=== PATIENT | male | born 1985 | race Caucasian/White ===

== ENCOUNTER 2020-12-05 03:53 | Emergency (ER) | payer OTHER, SELFPAY ==
--- NOTE | ~2020-12-05 | XR_ITS ---
EXAMINATION: XR LUMBOSACRAL SPINE CLINICAL INFORMATION: Injury playing basketball COMPARISON: 04/15/2017 TECHNIQUE: Three views of the lumbosacral spine. FINDINGS: There is anatomic alignment of the lumbar vertebral bodies and posterior elements. Vertebral body heights and intervertebral disc spaces are maintained. No acute fracture is seen. Sacroiliac joints appear intact. XR/XR lumbar spine 2-3V IMPRESSION: No acute findings identified.
[2020-12-05 04:18] VITALS: BP 135/88; PULSE 81; RESP 16; TEMP 36.3; O2SAT 98; BMI 29.2
--- NOTE | 2020-12-05 06:52 | ED_ITS ---
HPI - Back Pain/Injury General Chief Complaint: Back Pain/Injury Stated Complaint: back pain Time Seen by Provider: 12/05/20 06:40 Source: patient Mode of arrival: ambulatory Limitations: no limitations History of Present Illness HPI Narrative: 35-year-old male who presents emergency department for evaluation of left lower back pain. Patient was playing basketball yesterday at around 3:00 p.m. when he jumped up landed and twisted his lower back. He states he developed immediate pain in his lower back area but he continued to play. He states that later in the day he developed increased pain in his lower back. States this morning around 1:00 a.m. the pain became 10/10. He points to his left lower lumbar back muscles when asked to localize the pain. States the pain is a constant, sharp, burning pain which is worse with movement. The pain does radiate to his left buttocks but does not radiate down his left leg. He took a friend's methocarbamol 750 mg orally with no relief his pain. He states the p ain is currently 10/10. He denied numbness, weakness, loss of bowel or bladder control. Denied fever, chills, chest pain, shortness of breath or fatigue. Related Data Previous Rx's Medication Instructions Recorded cyclobenzaprine 10 mg PO TID PRN #20 tab 12/05/20 morphine 15 mg PO Q4-6H PRN #10 tab 12/05/20 Allergies Allergy/AdvReac Type Severity Reaction Status Date / Time acetaminophen [From TYLENOL] AdvReac Unknown NAUSEA & Verified 12/05/20 04:17 VOMITING Review of Systems Review of Systems: Yes all other systems are reviewed and are negative [facility] Past Medical History [facility] Narrative: Past medical history: None, past surgical history: None. Social history: Patient smokes 1 pack of cigarettes per day x7 days. He states he drinks alcohol on the weekends. He denies drug use. Social History Social History Advance Directives: No Advance Directives Information Provided: No Physical Exam Vital Signs: Vital Signs: Last Vital Signs Temp 97.3 F 12/05/20 04:18 Pulse 81 12/05/20 04:18 Resp 16 12/05/20 04:18 BP 135/88 12/05/20 04:18 Pulse Ox 98 12/05/20 04:18 Body Mass Index 29.2 Const: Other: Patient is awake, alert, he is sitting in a chair, he appears to be in moderate distress secondary to his back pain. He is pleasant and c ooperative. HENMT: Head: Yes normal to inspection, Yes normocephalic and Yes atraumatic Ears: external ears normal General nose exam: Normal external nose present Face and sinus: Yes normal facial exam Mouth: Normal oral and palatal mucosa present Throat: Yes posterior oropharynx normal Eyes: Periorbital: periorbital findings normal Eyelids: Yes eyelids normal Conjunctivae: conjunctivae normal Sclerae: sclerae normal Corneas: corneas normal Pupils: Equal, round and reactive pupils present Direct Ophthalmoscopy: normal light reflex Neck: Neck: Yes full ROM, Yes no lymphadenopathy, Yes no meningeal signs, Yes trachea midline and Yes supple Chest: Chest palpation & inspection: normal inspection of the chest and normal palpation of entire chest wall Resp: Effort & Inspection: normal respiratory effort and able to speak in complete sentences Auscultation: clear to auscultation bilaterally Cardio: Rate: regular rate Rhythm: regular rhythm Heart sounds: S1 normal heart sound present, S2 normal heart sound present and no murmurs GI: Inspection: Yes normal to inspection Palpation (GI): Soft to palpation, nontender, no guarding, not rigid and No hepatosplenomegaly present : General: Yes no CVA tenderness Back/Spine/Pelvis: Back: no CVA tenderness Cervical Spine: normal cervical lordosis Thoracic/Lumbar Spine: thoracic and lumbar spine normal to inspection, paraspinal muscle tenderness on the left in the lower lumbar, thoraco-lumbar spasm on the left in the lower lumbar, No lumbar spinal tende rness and straight leg raise positive (Bilaterally) Skin: Lesions: no lesions Rashes: no rashes Wounds: no wounds Neuro: General: no meningeal signs Cranial nerves: Yes CN's II-XII intact bilaterally and Yes Equal, round and reactive pupils present Cognition (Neuro): normal cognition Motor exam (neuro): 5/5 motor strength present throughout Extrem: General: Yes normal to inspection and Yes full ROM Psych: Appearance: well kempt Mental Status: mental status grossly normal Speech and movement: Normal speech and movement present Affect: normal affect Attitude: cooperative Thought process: Normal thought process pr esent Thought content: Normal thought content present Course Course Course Narrative: 35-year-old male who presents emergency department for evaluation of pain and spasms of his left lumbar lower back region after an injury playing basketball yesterday 3:00 p.m.. The pain got worse this morning and is not 10/10. Patient does appear to be in distress secondary to his pain. He did have significant tenderness and spasm of the paraspinal muscles in the left lumbar sacral area. Patient's pain was treated with Toradol 60 mg IM and his spasm was treated with cyclobenzaprine 10 mg orally. 0900: The patient's pain improved slightly with the Toradol and cyclobenzaprine. He was ordered to get morphine 4 mg IM. Patient advised to take ibuprofen 200 mg, 3 pills every 6 hours as needed for pain and cyclobenzaprine 10 mg, 1 pill every 6-8 hours as needed for pain or spasm. For pain not relieved by these medications he was prescribed morphine 15 mg every 4 hours as needed for pain. The patient was given verbal and printed instructions prior to discharge. The patient was advised to follow-up with their PCP in 2 days and to return to the emergency department if there symptoms get worse or if they develop any new symptoms that are concerning to them Discharge Plan Discharge Clinical Impression: Strain of lumbar region Qualifiers: Encounter type: initial encounter Qualified Code(s): S39.012A - Strain of muscle, fascia and tendon of lower back, initial encounter Patient Disposition: Home, Self-Care Instructions: Low Back Strain (ED) Additional Instructions: Back Pain Discharge Instructions: Take Motrin (ibuprofen) 200 mg pills, 3 pills every 6 hours as needed for pain. Take Flexeril (cyclobenzaprine) 10 mg pills, 1 pill every 8 hours as needed for pain or muscle spasm. This is a prescription medication. This medication will make you sleepy, therefore do not drive or work while taking this medication. For pain not relieved by Motrin or Flexeril, take morphine 15 mg pills, 1 pill every 4-6 hours as needed for pain. This is a narcotic medication will make you sleepy, do not drive or work while taking this medication. Also this medication can be addicting, if your concerned about addiction do not get this prescription filled or you can ask the pharmacist for less pills than prescribed. Apply ice for 15 minutes to the area that hurts on your back, then apply a heating a pad on low for 15 minutes. Do this 4-6 times a day to help reduce the pain in your back. Continue with normal activities as tolerated since staying in bed and not moving around will make your pain worse. You can also try over the counter lidocaine patches as directed on the box to help with the pain. Please return to the Emergency Department or see your doctor immediately if your symptoms get worse or if you develop any new symptoms that are concerning you. Follow up with your doctor in 2 day. Please read the other printed discharge instructions on back pain. Prescriptions: New cyclobenzaprine 10 mg tablet 10 mg PO TID PRN (Reason: muscle pain or spasm) Qty: 20 RF: 0 morphine 15 mg tablet 15 mg PO Q4-6H PRN (Reason: pain) Qty: 10 RF: 0 Stand Alone Forms: Work/School Release
[2020-12-05] MEDS: Cyclobenzaprine HCl 10 MG TABLET PO (07:19)
[2020-12-05] MEDS: Ketorolac Tromethamine 60 MG/2 ML VIAL IM (07:19)
[2020-12-05] MEDS: Morphine Sulfate 4 MG/ML CARTRIDGE IM (09:27)
--- NOTE | 2020-12-05 09:29 | PC.NURSE ---
Pt medicated with IM morphine. He was instructed prior to the morphine administration that his ride would need to com into the ED to be visualized prior to discharge. Pt agreed and stated that his ride was on the way. Pt given ice pack for his lower back.
[2020-12-05 09:59] VITALS: BP 133/88; PULSE 60; RESP 17; O2SAT 99
== END 2020-12-05 10:36 | disposition home or self-care (01) ==
PROVIDERS: Emergency Provider Emergency Medicine Emergency Medical Services
DX: S39.012A Strain of muscle, fascia and tendon of lower back, initial encounter (principal); X50.1XXA Overexertion from prolonged static or awkward postures, initial encounter; Y93.67 Activity, basketball; Y92.9 Unspecified place or not applicable; Y99.9 Unspecified external cause status
CPT/HCPCS: 72100; 96372; 99283; 99284; J1885; J2270

== ENCOUNTER 2021-01-01 04:46 | Emergency (ER) | payer OTHER, SELFPAY ==
--- NOTE | ~2021-01-01 | XR_ITS ---
EXAMINATION: XR CHEST CLINICAL INFORMATION: Shortness of breath COMPARISON: None TECHNIQUE: Frontal view of the chest was obtained. FINDINGS: The lungs are well expanded. There is no focal consolidation, edema, or effusion. No pneumothorax. The cardiomediastinal silhouette is within normal limits. No acute osseous abnormality. XR/XR chest 1V IMPRESSION: Clear lungs.
[2021-01-01 05:17] VITALS: BP 129/86; PULSE 83; RESP 18; TEMP 36.6; O2SAT 99; BMI 29.2
--- NOTE | 2021-01-01 05:39 | ECG_ITS ---
Test Reason : ANXIETY Blood Pressure : / mmHG Vent. Rate : 070 BPM Atrial Rate : 070 BPM P-R Int : 174 ms QRS Dur : 090 ms QT Int : 386 ms P-R-T Axes : 046 -03 021 degrees QTc Int : 416 ms Normal sinus rhythm Normal ECG When compared with ECG of 08-JAN-2017 21:31, No significant change was found Referred By: Gilma Macias Electronically Signed By:MAXIMINO HILL
[2021-01-01 06:10] LABS: COVID-19 Test Negative (Negative); IDNOW Serial# 9DD0AD1C
--- NOTE | 2021-01-01 06:14 | ED_ITS ---
HPI - Anxiety General Chief Complaint: Anxiety Stated Complaint: anxiety Time Seen by Provider: 01/01/21 05:39 History of Present Illness HPI narrative: Patient is a 35-year-old male with a history of anxiety. Patient feels very anxious tonight. Denies any suicidal homicidal ideation. Positive coughing upper respiratory symptoms. Patient smokes. Patient did not receive his coronavirus vaccine. No fever. Related Data Previous Rx's Medication Instructions Recorded cyclobenzaprine 10 mg PO TID PRN #20 tab 12/05/20 morphine 15 mg PO Q4-6H PRN #10 tab 12/05/20 Allergies Allergy/AdvReac Type Severity Reaction Status Date / Time acetaminophen [From TYLENOL] AdvReac Unknown NAUSEA & Verified 12/05/20 04:17 VOMITING Review of Systems Review of Systems: Positive coughing positive upper respiratory symptoms positive anxiety Yes all other systems are reviewed and are negative [facility] Past Medical History Attestation statement: The following information was validated with the patient. Medical History Anxiety Social History Social History Advance Directives: No Physical Exam Vital Signs: Vital Signs: Last Vital Signs Temp 97.9 F 01/01/21 05:17 Pulse 83 01/01/21 05:17 Resp 18 01/01/21 05:17 BP 129/86 01/01/21 05:17 Pulse Ox 99 01/01/21 05:17 Body Mass Index 29.2 Appearance: Alert. Oriented X3. No acute distress. Eyes: Pupils equal, round and reactive to light. ENT: Pharynx normal. Neck: Normal inspection. Neck supple. No lymph nodes noted. No crepitus CVS: Normal heart rate and rhythm. Pulses normal. Normal S1 and S2 Respiratory: No respiratory distress. Breath sounds normal. No Wheezing. No rales Abdomen: Soft and nontender. No rigidity. No distention. good BS x4 Skin: Skin warm and dry. Normal skin color. Normal skin turgor. Extremities: No lower extremity edema. Neurovascular intact to all extremities. No Lacerations. No Rash Neuro: Oriented X 3. No motor deficit. No sensory deficit. Moving all extermities. No slurred speech MDM - Anxiety MDM Narrative Medical decision making narrative: Well-appearing no acute distress. Patient's EKG showed a sinus pattern heart rate was 70 SD QRS QT within normal limits there is no acute ST segment elevation noted. Patient is not suicidal. His COVID test is negative. His chest x-ray showed no focal infiltrate. Patient is to be discharged home. Told to stop smoking. Patient is now sleeping in the emergency department his anxiety has subsided. Lab Data Labs: Lab Results 01/01/21 Range/Units 05:49 COVID-19 (DIANN) Negative (Negative) COVID-19 Clin Com See Note Discharge Plan Discharge Clinical Impression: Acute anxiety Patient Disposition: Home, Self-Care Instructions: Anxiety (ED) Prescriptions: No Action cyclobenzaprine 10 mg tablet 10 mg PO TID PRN (Reason: muscle pain or spasm) Qty: 20 RF: 0 morphine 15 mg tablet 15 mg PO Q4-6H PRN (Reason: pain) Qty: 10 RF: 0 Referrals: Physician,Unknown [Primary Care Provider] - 2 days
== END 2021-01-01 06:43 | disposition home or self-care (01) ==
PROVIDERS: Emergency Provider Emergency Medicine Emergency Medical Services
DX: F41.9 Anxiety disorder, unspecified (principal); F17.210 Nicotine dependence, cigarettes, uncomplicated; Z20.822 Contact with and (suspected) exposure to COVID-19
CPT/HCPCS: 36415; 71045; 87635; 93005; 99283

== ENCOUNTER 2021-06-29 01:02 | Emergency (ER) | payer OTHER, SELFPAY ==
[2021-06-29 01:18] VITALS: BP 106/63; PULSE 112; RESP 18; TEMP 38.2; O2SAT 96; BMI 25.7
== END 2021-06-29 03:41 | disposition left against medical advice (07) ==
PROVIDERS: Emergency Provider Emergency Medicine
DX: R50.9 Fever, unspecified (principal)
CPT/HCPCS: 99281

== ENCOUNTER 2021-10-09 07:29 | Emergency (ER) | payer OTHER, SELFPAY ==
--- NOTE | 2021-10-09 07:38 | PC.NURSE ---
this nurse went to wr to call to triage patient with no answer, security recognized who the patient was and did not see them in the wr, security looked outside and patient was not found. pt lwt.
== END 2021-10-09 07:40 | disposition left against medical advice (07) ==
PROVIDERS: Emergency Provider Emergency Medicine
DX: R05.9 Cough, unspecified (principal); R06.02 Shortness of breath

== ENCOUNTER 2021-10-09 07:45 | Emergency (ER) | payer OTHER, SELFPAY ==
--- NOTE | 2021-10-09 08:39 | PC.NURSE ---
patient came back in, re-registered and immediately walked back out the door before this nurse could even call his name to triage the patient. this nurse and security went outside and the patient was not seen outdoors.
== END 2021-10-09 08:42 | disposition left against medical advice (07) ==
PROVIDERS: Emergency Provider Emergency Medicine
DX: R05.9 Cough, unspecified (principal); R06.02 Shortness of breath

== ENCOUNTER 2021-11-03 15:08 | Emergency (ER) | payer OTHER, SELFPAY ==
[2021-11-03 15:27] VITALS: BP 128/79; PULSE 89; RESP 19; TEMP 36.6; O2SAT 98; BMI 29.5
--- NOTE | 2021-11-03 16:22 | ED.GENADULT ---
HPI - General Adult General Chief complaint: Dental/Oral Stated complaint: tooth pain/ear pain Time Seen by Provider: 11/03/21 16:22 Source: patient Mode of arrival: ambulatory Limitations: no limitations History of Present Illness HPI narrative: Patient is a 36 year old male presenting to the emergency department today with dental pain. Patient states that he has a partial type denture on his teeth and lately the right side has been rubbing, causing pain. Patient denies any dizziness, lightheadedness, abdominal pain, nausea, vomiting, fever, chills, blurry vision, double vision, loss of vision, chest pain, difficulty breathing, shortness of breath, back pain, night sweats, pain with urination, increased urinary frequency, increased urinary urgency, blood in his urine or stool, syncope or a near syncopal episode, recent trauma or falls, bowel incontinence, bladder incontinence, bowel retention, bladder retention, or any other complaints at this time.? Onset (ago): day(s) Location: mouth Severity: mild Severity scale (1-10): 3 Quality: dull Pain Consistency: intermittent and now resolved Relieving factors: none Exacerbating factors: none Associated symptoms: denies other symptoms Treatments prior to arrival: none Related Data Previous Rx's Medication Instructions Recorded cyclobenzaprine 10 mg tablet 10 mg PO TID PRN #20 tab 12/05/20 morphine 15 mg immediate release 15 mg PO Q4-6H PRN #10 tab 12/05/20 tablet Allergies Allergy/AdvReac Type Severity Reaction Status Date / Time acetaminophen [From TYLENOL] AdvReac Unknown NAUSEA & Verified 12/05/20 04:17 VOMITING Review of Systems Constitutional: Constitutional: Reports no additional constitutional complaints, Denies chills, Denies fever(s) and Denies night sweats Eyes: Eyes: Reports no additional eye complaints, Denies blurry vision, Denies change in vision, Denies diplopia, Denies eye discharge, Denies loss of vision and Denies eye pain ENT: Denies dizziness Comments: dental pain Cardiovascular: Cardiovascular: Reports no additional cardiovascular complaints, Denies chest pain, Denies lightheadedness, Denies Loss of Consciousness and Denies dyspnea Respiratory: Respiratory: Reports no additional respiratory complaints and Denies dyspnea Gastrointestinal: Gastrointestinal: Reports no additional gastrointestinal complaints, Denies abdominal pain, Denies melena, Denies hematochezia, Denies change in bowel habits and Denies change in stool character Genitourinary: Genitourinary: Reports no additional male genitourinary complaints, Denies hematuria, Denies oliguria, Denies difficulty urinating, Denies dysuria, Denies urinary frequency, Denies urinary hesitancy, Denies urinary incontinence and Denies urinary urgency Musculoskeletal: Musculoskeletal: Reports no additional musculoskeletal complaints, Denies numbness and Denies tingling Neurologic: Denies dizziness, Denies loss of vision, Denies numbness and Denies tingling Psychiatric: Psychiatric: Reports no additional psychiatric complaints Endocrine: Endocrine: Reports no additional endocrine complaints Hematologic/Lymphatic: Hematologic/Lymphatic: Reports no additional hematologic/lymphatic complaints Allergic/Immunologic: Allergic/Immunologic: Reports no additional allergic/immunologic complaints PMFSH Past Medical History Attestation statement: The following information was validated with the patient. Source: old records reviewed Medical History Anxiety Social History Social History Advance Directives: No Advance Directives Information Provided: No Physical Exam ED Vital Signs: Vital Signs - 24 hr 11/03/21 15:27 Temperature 98 F Pulse Rate 89 Respiratory Rate 19 Blood Pressure 128/79 Pulse Oximetry 98 BMI result Body Mass Index 29.5 Const General: cooperative, no acute distress, alert and awake Nutritional Appearance: well nourished Orientation/consciousness: patient oriented x3 Limitations: no limitations HENMT Head: Yes normal to inspection and Yes atraumatic Ears: hearing grossly normal bilaterally and external ears normal General nose exam: Normal external nose present, no nasal discharge noted and no epistaxis Face and sinus: Yes normal facial exam, No abrasion and No laceration Mouth: Normal oral and palatal mucosa present, no drooling and no muffled voice Eyes General: appearance normal, both eyes and all related structures Periorbital: periorbital findings normal Eyelids: Yes eyelids normal Conjunctivae: conjunctivae normal Pupils: Equal, round and reactive pupils present EOM: EOMs intact bilaterally Neck Neck: Yes normal visual inspection, Yes full ROM and Yes no lymphadenopathy Chest Chest palpation & inspection: normal inspection of the chest Resp Effort & Inspection: normal respiratory effort and able to speak in complete sentences Auscultation: clear to auscultation bilaterally Cardio Rate: regular rate Rhythm: regular rhythm GI Inspection: Yes normal to inspection Neuro General: patient oriented x3 and moves all extremities Cranial nerves: Yes Equal, round and reactive pupils present Cognition (Neuro): normal cognition Motor exam (neuro): 5/5 motor strength present throughout Sensory Exam: Normal double simultaneous stimulation for sensation Coordination: [id number] test normal Extrem General: Yes normal to inspection, Yes full ROM and Yes capillary refill normal Psych Appearance: grossly normal Mental Status: mental status grossly normal Affect: normal affect Attitude: cooperative Thought process: Normal thought process present Thought content: Normal thought content present Insight: Good insight present (Psych) Medical Decision Making MDM Narrative Medical decision making narrative: Patient is a 36 year old male presenting to the emergency department today with dental pain. Patient's physical exam was unremarkable. I explained my physical exam findings to the patient. I answered all questions asked by the patient. I stressed the importance of the patient taking his medication as prescribed. I stressed the importance of the patient following up with his primary care provider. I stressed the importance of the patient returning to the emergency department immediately if his symptoms were to worsen or if he were to develop any dizziness, shortness of breath, difficulty breathing, chest pain, blurry vision, loss of vision, nausea, vomiting, abdominal pain, fever, chills, back pain, or any other complaints. Patient verbalized agreement and understanding with this treatment plan and discharge. Differential Diagnosis Differential Diagnosis: dental pain Medical Records Medical records reviewed: Yes I reviewed the patient's medical records. Discharge Plan Discharge Clinical Impression: Toothache Patient Disposition: Home, Self-Care Instructions: Toothache (ED) Additional Instructions: Follow up with your primary care provider. Return to the emergency department immediately if your symptoms worsen or if you develop any dizziness, shortness of breath, difficulty breathing, chest pain, blurry vision, loss of vision, nausea, vomiting, abdominal pain, fever, chills, back pain, or any other complaints. Call or visit any of the clinics below to establish with a dentist: [facility] [address] [place] [address] [facility] [address] [facility], [address] [address] John [address] [place] [id number] [facility] [address] [address] [facility] [address] [place], [place] [id number] [place] [address] [place], [place] [id number] Prescriptions: No Action cyclobenzaprine 10 mg tablet 10 mg PO TID PRN (Reason: muscle pain or spasm) Qty: 20 0RF morphine 15 mg tablet 15 mg PO Q4-6H PRN (Reason: pain) Qty: 10 0RF Rx Instructions: The patient may ask for partial fill Interventions: ED Discharge Assessment Last Done: 11/03/21 16:53 Discharge Date/Time: 11/03/21 16:55 Print Language: Mexican
== END 2021-11-03 16:55 | disposition home or self-care (01) ==
PROVIDERS: Emergency Provider Internal Medicine
DX: K08.89 Other specified disorders of teeth and supporting structures (principal)
CPT/HCPCS: 99282; 99283

== ENCOUNTER 2022-03-02 16:57 | Emergency (ER) | payer OTHER, SELFPAY ==
[2022-03-02 17:09] VITALS: BP 119/70; PULSE 88; RESP 18; TEMP 36.2; O2SAT 100; BMI 28.8
--- NOTE | 2022-03-02 19:12 | PC.NURSE ---
called x 3 for reassessment/revitaling. No answer. Presumed LWT
== END 2022-03-02 19:47 | disposition left against medical advice (07) ==
LOC: HO.ED 19:46
PROVIDERS: Emergency Provider Emergency Medicine
DX: S81.851A Open bite, right lower leg, initial encounter (principal); W54.0XXA Bitten by dog, initial encounter; Y93.9 Activity, unspecified; Y92.9 Unspecified place or not applicable; Y99.9 Unspecified external cause status
CPT/HCPCS: 99281

== ENCOUNTER 2022-07-04 09:44 | Emergency (ER) | payer OTHER, SELFPAY ==
[2022-07-04 09:53] VITALS: BP 111/70; PULSE 73; RESP 18; TEMP 36.3; O2SAT 97; BMI 25.7
== END 2022-07-04 11:04 | disposition left against medical advice (07) ==
PROVIDERS: Emergency Provider Emergency Medicine
DX: M25.571 Pain in right ankle and joints of right foot (principal)
CPT/HCPCS: 99281

== ENCOUNTER 2022-07-29 11:31 | Emergency (ER) | payer OTHER, SELFPAY ==
--- NOTE | 2022-07-29 11:37 | ED_ITS ---
HPI - Back Pain/Injury General Chief Complaint: Back Pain/Injury Stated Complaint: back pain no inj Time Seen by Provider: 07/29/22 11:38 Source: patient Mode of arrival: ambulatory History of Present Illness HPI Narrative: 37-year-old male with past medical history anxiety presenting to the ED complaining of nonradiating low back pain since waking up this morning. Denies head injury, trauma fall, numbness, tingling, weakness, urinary incontinence/retention, hematuria, flank pain. Denies taking anything for pain [employer]. MD elicited complaint: back pain Related Data Previous Rx's Medication Instructions Recorded cyclobenzaprine 10 mg tablet 10 mg PO TID PRN muscle pain or 12/05/20 spasm #20 tabs morphine 15 mg immediate release 15 mg PO Q4-6H PRN pain #10 tabs 12/05/20 tablet acetaminophen 500 mg tablet 500 mg PO Q6H PRN fever or pain 07/29/22 (Tylenol Extra Strength) #14 tabs cyclobenzaprine 5 mg tablet 5 mg PO Q8H PRN pain (scale score 07/29/22 7-10) 5 days #14 tabs lidocaine 5 % topical patch 1 patch topical DAILY PRN pain #30 07/29/22 (Lidoderm) ea naproxen 500 mg tablet 500 mg PO BID PRN pain 10 days #20 07/29/22 tabs Allergies Allergy/AdvReac Type Severity Reaction Status Date / Time No Known Allergies Allergy Verified 07/29/22 11:38 Review of Systems Review of Systems: Constitutional: No Fever, No Chills ENT/Mouth: No Ear Pain, No Nasal Congestion, No sore throat, No Rhinorrhea, No Swallowing Difficulty Cardiovascular: No Chest Pain, No SOB Respiratory: No Cough, No Sputum Gastrointestinal: No Nausea, No Vomiting, No Diarrhea, No Constipation, No Abdominal pain Genitourinary: No Dysuria, No Urinary Frequency, No Hematuria, No Urinary Incontinence/retention, No Flank Pain Musculoskeletal: + joint pain, No Myalgias, No Joint Swelling Skin: No Skin Lesions, No rash Neuro: No Weakness, No Numbness, No Paresthesias Yes all other systems are reviewed and are negative Constitutional: Constitutional: Reports as per [facility] Past Medical History Attestation statement: The following information was validated with the patient. Medical History Anxiety Physical Exam Vital Signs: Vital Signs: Last Vital Signs Temp 98.4 F 07/29/22 11:38 Pulse 85 07/29/22 11:38 Resp 16 07/29/22 11:38 BP 121/75 07/29/22 11:38 Pulse Ox 98 07/29/22 11:38 O2 Del Method 07/29/22 11:38 BMI result Body Mass Index 27.1 Const: General: cooperative, healthy appearing and no acute distress Orien tation/consciousness: patient oriented x3 Limitations: no limitations HEENT: Head: Yes normal to inspection and Yes atraumatic Ears: hearing grossly normal bilaterally General nose exam: Normal external nose present Face and sinus: Yes normal facial exam Eyes: General: appearance normal, both eyes and all related structures EOM: EOMs intact bilaterally Neck: Neck: Yes normal visual inspection and Yes no meningeal signs Resp: Effort & Inspection: normal respiratory effort and no respiratory distress Cardio: Rate: regular rate GI: Inspection: Yes normal to inspection Palpation (GI): Soft to palpation, nontender, no guarding and not rigid : General: Yes no CVA tenderness Back/Spine/Pelvis: Other: No midline thoracic/lumbar spinous tenderness/step-off or deformity. Mild b ilateral lower lumbar MSK tenderness to palpation Back: no CVA tenderness Skin: Rashes: no rashes Wounds: no wounds Neuro: Other: Strength intact throughout. No saddle anesthesia. Sensation intact to light touch. Neurovascular intact distally General: patient oriented x3, tone normal and no meningeal signs Gait exam (Neuro): Normal gait present Extrem: General: Yes normal to inspection Medical Decision Making Medical Decision Making MDM Narrative: 37-year-old male with past medical history anxiety presenting to the ED complaining of nonradiating low back pain since waking up this morning. On exam vital signs stable, NAD, nontoxic appearing, no midline spinous tenderness through or red flag symptoms. Concern for MSK pain/strain. Low suspicion for sciatica, cord compression, cauda equina, pyelo or renal stone Plan: Pain control Results discussed with patient including worrisome signs and symptoms and strict return precautions, and when to return to the emergency department. They verbal ized understanding and feel safe for discharge at this time. Differential Diagnosis Differential Diagnoses: The differential diagnosis associated with the presentation includes as above Prescription Management I considered prescription management with: Pain Medication Discharge Plan Discharge Clinical Impression: Back strain Patient Disposition: Home, Self-Care Instructions: Back Pain (ED) Additional Instructions: Your pain is likely musculoskeletal Flexeril is a muscle relaxer, take at night as it makes you drowsy, do not drive, drink alcohol, or operate machinery while taking it Naproxen as an anti-inflammatory / pain medication, take with food Lidoderm patches are numbing patches, apply to painful area In addition take Tylenol at home If symptoms persist or worsen, pain becomes unbearable, you developed urinary retention or incontinence, or weakness return to the ED Prescriptions: New acetaminophen [Tylenol Extra Strength] 500 mg tablet 500 mg PO Q6H PRN (Reason: fever or pain) Qty: 14 0RF lidocaine [Lidoderm] 5 % adhesive patch,medicated 1 patch topical DAILY MDD remove after 12 hours PRN (Reason: pain) Qty: 30 0RF Rx Instructions: leave on most painful area for up to 12 hrs naproxen 500 mg tablet 500 mg PO BID PRN (Reason: pain) 10 Days Qty: 20 0RF cyclobenzaprine 5 mg tablet 5 mg PO Q8H PRN (Reason: pain (scale score 7-10)) 5 Days Qty: 14 0RF No Action cyclobenzaprine 10 mg tablet 10 mg PO TID PRN (Reason: muscle pain or spasm) Qty: 20 0RF morphine 15 mg tablet 15 mg PO Q4-6H PRN (Reason: pain) Qty: 10 0RF Rx Instructions: The patient may ask for partial fill Referrals: Physician,None [Primary Care Provider] - Stand Alone Forms: Work/School Release
[2022-07-29 11:38] VITALS: BP 121/75; PULSE 85; RESP 16; TEMP 36.9; O2SAT 98; BMI 27.1
== END 2022-07-29 12:00 | disposition home or self-care (01) ==
LOC: HO.ED 11:53
PROVIDERS: Emergency Provider Student in an Organized Health Care Education/Training Program
DX: M54.50 Low back pain, unspecified (principal); Z79.899 Other long term (current) drug therapy
CPT/HCPCS: 99282

== ENCOUNTER 2023-03-14 19:51 | Emergency (ER) | payer OTHER, SELFPAY ==
[2023-03-14 20:20] VITALS: BP 141/86; PULSE 76; RESP 16; TEMP 36.9; O2SAT 99; BMI 27.7
--- NOTE | 2023-03-14 20:20 | ED_ITS ---
HPI - General Adult General Chief complaint: Wound/Laceration Stated complaint: ear laceration Related Data Previous Rx's Medication Instructions Recorded cyclobenzaprine 10 mg tablet 10 mg PO TID PRN muscle pain or 12/05/20 spasm #20 tabs morphine 15 mg immediate release 15 mg PO Q4-6H PRN pain #10 tabs 12/05/20 tablet acetaminophen 500 mg tablet 500 mg PO Q6H PRN fever or pain 07/29/22 (Tylenol Extra Strength) #14 tabs cyclobenzaprine 5 mg tablet 5 mg PO Q8H PRN pain (scale score 07/29/22 7-10) 5 days #14 tabs lidocaine 5 % topical patch 1 patch topical DAILY PRN pain #30 07/29/22 (Lidoderm) ea naproxen 500 mg tablet 500 mg PO BID PRN pain 10 days #20 07/29/22 tabs cephalexin 500 mg tablet 500 mg PO Q6H 7 days #28 tabs 03/15/23 Allergies Allergy/AdvReac Type Severity Reaction Status Date / Time No Known Allergies Allergy Verified 07/29/22 11:38 [facility] Past Medical History Medical History Anxiety Social History Social History Advance Directives: No Advance Directives Information Provided: Yes Physical Exam ED Vital Signs: BMI result Body Mass Index 27.7 Course Course Course Narrative: This is a rapid medical exam: Additional HPI, ROS, PE not included below will be deferred to primary provider. Patient is a 37-year-old male presenting to the emergency department with complaint of laceration to right ear. States he was throwing a dirty toilet into a dumpster when it broke, and cut his ear. Unknown last tetanus. Happened around noon today. No active bleeding. Small laceration posterior to antitragus. Plan: Tdap Discharge Plan Discharge Clinical Impression: Laceration of right ear Qualifiers: Encounter type: initial encounter Qualified Code(s): S01.311A - Laceration without foreign body of right ear, initial encounter Patient Disposition: Left W/O Completing Treatment Prescriptions: No Action cyclobenzaprine 10 mg tablet 10 mg PO TID PRN (Reason: muscle pain or spasm) Qty: 20 0RF morphine 15 mg tablet 15 mg PO Q4-6H PRN (Reason: pain) Qty: 10 0RF Rx Instructions: The patient may ask for partial fill acetaminophen [Tylenol Extra Strength] 500 mg tablet 500 mg PO Q6H PRN (Reason: fever or pain) Qty: 14 0RF lidocaine [Lidoderm] 5 % adhesive patch,medicated 1 patch topical DAILY MDD remove after 12 hours PRN (Reason: pain) Qty: 30 0RF Rx Instructions: leave on most painful area for up to 12 hrs naproxen 500 mg tablet 500 mg PO BID PRN (Reason: pain) 10 Days Qty: 20 0RF cyclobenzaprine 5 mg tablet 5 mg PO Q8H PRN (Reason: pain (scale score 7-10)) 5 Days Qty: 14 0RF cephalexin 500 mg tablet 500 mg PO Q6H 7 Days Qty: 28 0RF Discharge Date/Time: 03/15/23 00:12
== END 2023-03-15 00:12 | disposition left against medical advice (07) ==
PROVIDERS: Emergency Provider Emergency Medicine
DX: S01.311A Laceration without foreign body of right ear, initial encounter (principal); W26.8XXA Contact with other sharp object(s), not elsewhere classified, initial encounter; Y93.E9 Activity, other interior property and clothing maintenance; Y92.017 Garden or yard in single-family (private) house as the place of occurrence of the external cause; Y99.9 Unspecified external cause status
CPT/HCPCS: 99281

== ENCOUNTER 2023-03-15 10:09 | Emergency (ER) | payer OTHER, SELFPAY ==
[2023-03-15 10:14] VITALS: BP 125/86; PULSE 70; RESP 18; TEMP 36.7; O2SAT 98; BMI 25.7
--- NOTE | 2023-03-15 11:34 | ED.GENADULT ---
HPI - General Adult General Chief complaint: Wound/Laceration Stated complaint: R Ear Lac 03/14/23 Time Seen by Provider: 03/15/23 11:37 Source: patient Mode of arrival: ambulatory Limitations: no limitations History of Present Illness HPI narrative: 37 y o male no pertinent PMH presenting for evaluation s/p scraping his ear yesterday. He states he was lifting a toilet into a dumpster when the toilet cut the side of his R ear. He denies overt head strike, LOC. States the bleeding his been controlled since immediately following the accident, wanted to come get it evaluated today. He denies any hearing changes, dizziness, purulent discharge from the site, loss of sensation to the site. He denies any chest pain, shortness of breath, visual changes, numbness or tingling. He is not up to date on his tetanus vaccine. Related Data Previous Rx's Medication Instructions Recorded cyclobenzaprine 10 mg tablet 10 mg PO TID PRN muscle pain or 12/05/20 spasm #20 tabs morphine 15 mg immediate release 15 mg PO Q4-6H PRN pain #10 tabs 12/05/20 tablet acetaminophen 500 mg tablet 500 mg PO Q6H PRN fever or pain 07/29/22 (Tylenol Extra Strength) #14 tabs cyclobenzaprine 5 mg tablet 5 mg PO Q8H PRN pain (scale score 07/29/22 7-10) 5 days #14 tabs lidocaine 5 % topical patch 1 patch topical DAILY PRN pain #30 07/29/22 (Lidoderm) ea naproxen 500 mg tablet 500 mg PO BID PRN pain 10 days #20 07/29/22 tabs cephalexin 500 mg tablet 500 mg PO Q6H 7 days #28 tabs 03/15/23 Allergies Allergy/AdvReac Type Severity Reaction Status Date / Time No Known Allergies Allergy Verified 07/29/22 11:38 Review of Systems Review of Systems: Constitutional : No Fever, No Chills, Cardiovascular : No Chest Pain, No SOB Respiratory : No Dyspnea Gastrointestinal : No abdominal pain Musculoskeletal : No Joint Swelling Skin : No rash, positive skin laceration Neuro : No Weakness, No Numbness Psych : No SI/HI Yes all other systems are reviewed and are negative PMFSH Past Medical History Medical History Anxiety Physical Exam ED Vital Signs: Vital Signs - 24 hr 03/15/23 10:14 Temperature 98.0 F Pulse Rate 70 Respiratory Rate 18 Blood Pressure 125/86 Pulse Oximetry 98 Oxygen Delivery Method Room Air BMI result Body Mass Index 25.7 VSS Appearance: Alert.? Oriented X3.? No acute distress.? Head: Normocephalic, atraumatic, no step-offs or deformities Eyes: Pupils equal, round and reactive to light.? ENT: + superficial cut healing to right ear ( iamges below) not through and through. No bleeding. No pain with manipulation of external ears bilaterally. No mastoid tenderness. Neck: Normal inspection.? Neck supple.? CVS: Normal heart rate and rhythm.? Pulses normal.? Respiratory: No respiratory distress.? Breath sounds normal.? Skin: Skin warm and dry.? Normal skin color.? Normal skin turgor.? Extremities: No lower extremity edema.? No calf ttp. 5/5 strength to bilateral upper and lower extremities Neuro: Oriented X 3.? No motor deficit.? No sensory deficit. CN 2-12 intact Medical Decision Making Medical Decision Making [facility] Narrative: [address]2 37 yo m presents w/ lac to ear that occured yesterday. PE w/ + superficial cut healing to right ear ( iamges below) not through and through. No bleeding. No pain with manipulation of external ears bilaterally. No mastoid tenderness. likely simple lac. No signs of complex lac. Currently secondary healing occuring. No loss of consciousness, nonfocal neuro exam, I do not suspect intracranial hemorrhage, stroke, posterior stroke. I do not suspect concussion. No indication for sutures. Will give boostrix. And discharge patient with PCP follow-up. I did explain to him suturing the ear like this could lead to more poor outcomes/risk including infection, worsening risk for scarring, deformation. Patient verbalizes no need for sutures and understands that there is no actual indication at this time. Due to mechanism of injury will discharge on antibiotics as I suspect cartilage involved. Plan discharge from the waiting room with antibiotics, PCP follow-up. Educated on worsening signs or symptoms. Differential Diagnosis Differential Diagnoses: The differential diagnosis associated with the presentation includes likely simple lac. No signs of complex lac. Currently secondary healing occuring. No loss of consciousness, nonfocal neuro exam, I do not suspect intracranial hemorrhage, stroke, posterior stroke. I do not suspect concussion. Admission/Observation Consideration of admission/observation: Escalation of care including admission/observation considered No indication Tests considered The following testing was considered but not selected: [place] head CT score negative no indication for imaging. Nonfocal neuro exam Discharge Plan Discharge Clinical Impression: Laceration Patient Disposition: Home, Self-Care Instructions: Laceration (ED) Additional Instructions: Take your medications as prescribed. If you were prescribed antibiotics today, it is important that you take your medication to their entirety, do not skip any doses, do not finish them early. Follow-up with your primary care provider this week. Return to the emergency department with new or worsening symptoms. Such as fevers, chills, chest pain, shortness of breath, nausea, vomiting, dizziness, headache, vision changes, lethargy In case of emergency call 911 Prescriptions: New cephalexin 500 mg tablet 500 mg PO Q6H 7 Days Qty: 28 0RF No Action cyclobenzaprine 10 mg tablet 10 mg PO TID PRN (Reason: muscle pain or spasm) Qty: 20 0RF morphine 15 mg tablet 15 mg PO Q4-6H PRN (Reason: pain) Qty: 10 0RF Rx Instructions: The patient may ask for partial fill acetaminophen [Tylenol Extra Strength] 500 mg tablet 500 mg PO Q6H PRN (Reason: fever or pain) Qty: 14 0RF lidocaine [Lidoderm] 5 % adhesive patch,medicated 1 patch topical DAILY MDD remove after 12 hours PRN (Reason: pain) Qty: 30 0RF Rx Instructions: leave on most painful area for up to 12 hrs naproxen 500 mg tablet 500 mg PO BID PRN (Reason: pain) 10 Days Qty: 20 0RF cyclobenzaprine 5 mg tablet 5 mg PO Q8H PRN (Reason: pain (scale score 7-10)) 5 Days Qty: 14 0RF Referrals: Physician,None [Primary Care Provider] - 2 days Interventions: ED Discharge Assessment Last Done: 03/15/23 11:34
[2023-03-15] MEDS: Diphth,Pertus(ACell),Tet Adult 0.5 ML SYRINGE IM (11:40)
== END 2023-03-15 11:41 | disposition home or self-care (01) ==
LOC: HO.ED 11:39
PROVIDERS: Emergency Provider Emergency Medicine Emergency Medical Services; PCP Nurse Practitioner Family
DX: S01.311A Laceration without foreign body of right ear, initial encounter (principal); S00.411A Abrasion of right ear, initial encounter; X58.XXXA Exposure to other specified factors, initial encounter; Y93.9 Activity, unspecified; Y92.9 Unspecified place or not applicable; Y99.9 Unspecified external cause status; Z79.899 Other long term (current) drug therapy
CPT/HCPCS: 90471; 90715; 99282; 99284

== ENCOUNTER 2023-08-18 17:35 | Emergency (ER) | payer OTHER, SELFPAY ==
[2023-08-18 17:46] VITALS: BP 123/82; PULSE 78; RESP 18; TEMP 36.8; O2SAT 98; BMI 25.7
--- NOTE | 2023-08-18 17:58 | ED_ITS ---
HPI - Dental/Oral General Chief complaint: Dental/Oral Stated complaint: rt top tooth pain Time Seen by Provider: 08/18/23 17:53 Source: patient Mode of arrival: ambulatory Limitations: no limitations History of Present Illness HPI Narrative: Patient is a 38-year-old male presents emergency department for evaluation of dental pain to the right upper molar. Reports he is due to have extraction but has not yet scheduled this. Pain increases while eating. Has not tried any OTC medication. Denies fevers, chills, inability to swallow, neck pain, chest pain MD Complaint: tooth pain Teeth map: 2 1. pain, erythematous gingiva, no fluctuance, no abscess Related Data Previous Rx's Medication Instructions Recorded cyclobenzaprine 10 mg tablet 10 mg PO TID PRN muscle pain or 12/05/20 spasm #20 tabs morphine 15 mg immediate release 15 mg PO Q4-6H PRN pain #10 tabs 12/05/20 tablet acetaminophen 500 mg tablet 500 mg PO Q6H PRN fever or pain 07/29/22 (Tylenol Extra Strength) #14 tabs cyclobenzaprine 5 mg tablet 5 mg PO Q8H PRN pain (scale score 07/29/22 7-10) 5 days #14 tabs lidocaine 5 % topical patch 1 patch topical DAILY PRN pain #30 07/29/22 (Lidoderm) ea naproxen 500 mg tablet 500 mg PO BID PRN pain 10 days #20 07/29/22 tabs cephalexin 500 mg tablet 500 mg PO Q6H 7 days #28 tabs 03/15/23 amoxicillin 875 mg-potassium 1 tab PO BID #14 tabs 08/18/23 clavulanate 125 mg tablet chlorhexidine gluconate 0.12 % 15 ml buccal BID #118 mL 08/18/23 mouthwash Allergies Allergy/AdvReac Type Severity Reaction Status Date / Time No Known Allergies Allergy Verified 08/18/23 17:46 Review of Systems 2 Review of Systems: Yes all other systems are reviewed and are negative PMFSH Past Medical History Attestation statement: The following information was validated with the patient. Source: old records reviewed Medical History Anxiety Social History Social History Advance Directives: No Advance Directives Information Provided: No Physical Exam 2 Vital Signs: Vital Signs: Last Vital Signs Temp 98.3 F 08/18/23 17:46 Pulse 78 08/18/23 17:46 Resp 18 08/18/23 17:46 BP 123/82 08/18/23 17:46 Pulse Ox 98 08/18/23 17:46 O2 Del Method Room Air 08/18/23 17:46 BMI result Body Mass Index 25.7 Appearance: Alert. Oriented X3. No acute distress. Head: Normal external exam. Normocephalic. Atraumatic. Eyes: PERRLA. EOMI. Conjunctiva and sclera normal. Eyelids normal. ENT: EAC normal. TM's Normal. Pharynx normal. Uvula midline. Moist mucous membranes.? ?No trismus noted.? No drooling noted.? No muffled voice noted. Dentition:? Patient with poor dentition throughout with multiple old fractured teeth with multiple dental caries.? Gingival erythema surrounding tooth #3.? No fluctuance.? Not consistent with peritonsillar abscess. Not consistent with dental abscess.? No salivary duct obstruction noted. Neck: Normal inspection. Neck supple. FROM. No adenopathy. Thyroid Normal. No meningeal signs. No neck mass noted.? Trachea midline. CVS: Normal heart rate and rhythm. Heart sound normal. No murmurs noted. Pulses normal throughout. Respiratory: No respiratory distress. Painless inspiration. Breath sounds normal. No wheezes/rales/rhonchi noted. Chest nontender. ?No accessory muscle usage noted or decreased air movement noted. Back:? Full range of motion noted. Skin: Skin warm and dry.? Normal skin color.? Normal skin turgor. No rashes/lesions/lacerations noted. Extremities: Extremities exhibit normal range of motion.? Extremities nontender. Neuro: Oriented X 3.? No motor deficit.? No sensory deficit.? Reflexes normal. Medical Decision Making Medical Decision Making MDM Narrative: Patient is a 38-year-old male who presents emergency department for evaluation of dental pain, acute on chronic, requires extraction. Exam concerning for control infection, no evidence of abscess, nontoxic; afebrile, without tachycardia. 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 No evidence of Win's angina. Speaking clear full sentences, managing secretions. tolerating oral intake while in ED. discussed plan of care for discharge home, acetaminophen/ibuprofen for pain, chlorhexidine mouthwash, antibiotics, outpatient follow-up with dental provider. Discussed worrisome signs and symptoms that would warrant re-evaluation emergency department. All questions answered. Stable for discharge Differential Diagnosis Differential Diagnoses: The differential diagnosis associated with the presentation includes (See narrative above) Admission/Observation Consideration of admission/observation: Escalation of care including admission/observation considered (See narrative above) External Record Review External record reviewed: Outpatient record Prescription Management I considered prescription management with: Pain Medication and Antibiotic Discharge Plan Discharge Clinical Impression: Toothache Patient Disposition: Home, Self-Care Instructions: Toothache (ED) Additional Instructions: As discussed, complete the entire course of antibiotics as prescribed. You can take ibuprofen 200 mg, 3 tablets (600mg) every 6-8 hours as needed for pain, in addition to Tylenol 500 mg, 2 tablets (1,000mg) every 4-6 hours as needed for pain, but not to exceed 3 doses daily (3,000mg).? Ultimately require follow-up with your dentist for extraction of the teeth as previously advised. Prescriptions: New amoxicillin-pot clavulanate 875-125 mg tablet 1 tab PO BID Qty: 14 0RF chlorhexidine gluconate 0.12 % mouthwash 15 ml buccal BID Qty: 118 0RF No Action cyclobenzaprine 10 mg tablet 10 mg PO TID PRN (Reason: muscle pain or spasm) Qty: 20 0RF morphine 15 mg tablet 15 mg PO Q4-6H PRN (Reason: pain) Qty: 10 0RF Rx Instructions: The patient may ask for partial fill acetaminophen [Tylenol Extra Strength] 500 mg tablet 500 mg PO Q6H PRN (Reason: fever or pain) Qty: 14 0RF lidocaine [Lidoderm] 5 % adhesive patch,medicated 1 patch topical DAILY MDD remove after 12 hours PRN (Reason: pain) Qty: 30 0RF Rx Instructions: leave on most painful area for up to 12 hrs naproxen 500 mg tablet 500 mg PO BID PRN (Reason: pain) 10 Days Qty: 20 0RF cyclobenzaprine 5 mg tablet 5 mg PO Q8H PRN (Reason: pain (scale score 7-10)) 5 Days Qty: 14 0RF cephalexin 500 mg tablet 500 mg PO Q6H 7 Days Qty: 28 0RF Referrals: Gary Kaur CNP [Primary Care Provider] -
--- NOTE | 2023-08-18 18:08 | PC.NURSE ---
pt refused first dose of antibiotics as he would prefer to take with food and did not crackers or food here. pt said he would mixing picker tender his prescription and start the abx at home
== END 2023-08-18 18:10 | disposition home or self-care (01) ==
PROVIDERS: Emergency Provider Emergency Medicine; PCP Nurse Practitioner Family
DX: K08.89 Other specified disorders of teeth and supporting structures (principal)
CPT/HCPCS: 99282; 99283

== ENCOUNTER 2024-01-21 17:42 | Emergency (ER) | payer MEDICAID, SELFPAY ==
--- NOTE | ~2024-01-21 | CT_ITS ---
EXAMINATION: CT ABDOMEN AND PELVIS WITHOUT CONTRAST CLINICAL INFORMATION: Bilateral quadrant pain. Right-sided flank pain. COMPARISON: None available. TECHNIQUE: Multidetector volumetric imaging was performed from the superior aspect of the liver through the pubic symphysis. Sagittal and coronal reformatted images were obtained on the technologist's workstation. This CT examination was performed using dose optimization techniques as appropriate, variously including the following: *Automated exposure control *Adjustment of mA and/or kV according to patient size (this includes techniques or standardized protocols for targeted exams where dose is matched to indication/reason for exam; i.e. extremities or head) *Use of iterative reconstruction technique DLP: 507 mGy-cm FINDINGS: LUNG BASES: The visualized lung bases are unremarkable. LIVER, GALLBLADDER, AND BILIARY TREE: The liver is normal in size, shape, and attenuation. No focal hepatic lesion or biliary ductal dilatation is present. The gallbladder is unremarkable with no evidence of radiopaque gallstones, gallbladder wall thickening, or obvious pericholecystic inflammatory changes. PANCREAS: Unremarkable. SPLEEN: Unremarkable. ADRENAL GLANDS: Unremarkable. KIDNEYS AND URETERS: The kidneys are normal in size, shape, and attenuation. No hydronephrosis, hydroureter, or calculi seen. No perinephric stranding. BLADDER: Unremarkable. GASTROINTESTINAL TRACT: The small and large bowel are unremarkable. The appendix is unremarkable. ABDOMINAL WALL: No significant hernia is appreciated. LYMPH NODES: Normal. VASCULAR: Unremarkable. PELVIC VISCERA: Unremarkable. OSSEOUS STRUCTURES: Multilevel degenerative spondylosis spine. Small vertebral endplate spurring of the lumbar vertebrae. Vacuum disc changes at L5-S1. No spondylolysis or spondylolisthesis. CT/CT abdomen pelvis wo IV con IMPRESSION: No acute abnormality CT scan abdomen pelvis. Fleischner guidelines were followed.
[2024-01-21 18:42] VITALS: BP 140/83; PULSE 71; RESP 18; TEMP 36.5; O2SAT 100; BMI 27.5
--- NOTE | 2024-01-21 18:43 | ED_ITS ---
HPI - Abdominal Pain General Chief Complaint: Abdominal Pain Stated Complaint: Lower R abdominal pain Time Seen by Provider: 01/21/24 21:41 Source: patient Mode of arrival: ambulatory Limitations: no limitations History of Present Illness ED Provider: Melodie DEVRIES HPI narrative: This is a 38-year-old male otherwise healthy presenting to the ED with new onset right lower quadrant abdominal pain which subsequently resolved while he was in the ED waiting room. During the onset of pain he described it as a tight feeling in the right lower quadrant of his abdomen. He states that yesterday he took some antibiotics in combination with advil and beer however he did not seem to have any pain after that. Reports his last bowel movement was yesterday without any abnormalities. Normal urination. Tolerating food and fluids. He denies any chest pain, nausea, vomiting, shortness of breath, headaches, fever, and chills. Related Data Previous Rx's ?Medication ?Instructions ?Recorded cyclobenzaprine 10 mg tablet 10 mg PO TID PRN muscle pain or 12/05/20 spasm #20 tabs morphine 15 mg immediate release 15 mg PO Q4-6H PRN pain #10 tabs 12/05/20 tablet acetaminophen 500 mg tablet 500 mg PO Q6H PRN fever or pain 07/29/22 (Tylenol Extra Strength) #14 tabs cyclobenzaprine 5 mg tablet 5 mg PO Q8H PRN pain (scale score 07/29/22 7-10) 5 days #14 tabs lidocaine 5 % topical patch 1 patch topical DAILY PRN pain #30 07/29/22 (Lidoderm) ea naproxen 500 mg tablet 500 mg PO BID PRN pain 10 days #20 07/29/22 tabs cephalexin 500 mg tablet 500 mg PO Q6H 7 days #28 tabs 03/15/23 amoxicillin 875 mg-potassium 1 tab PO BID #14 tabs 08/18/23 clavulanate 125 mg tablet chlorhexidine gluconate 0.12 % 15 ml buccal BID #118 mL 08/18/23 mouthwash Allergies Allergy/AdvReac Type Severity Reaction Status Date / Time No Known Allergies Allergy Verified 01/21/24 18:43 Review of Systems Review of Systems Yes all other systems are reviewed and are negative PMFSH Past Medical History Attestation statement: The following information was validated with the patient. Source: old records reviewed and nursing notes reviewed Medical History Anxiety Social History Social History Smoked in Last 30 Days: Yes Use of substances other than those prescribed or required for medical reasons: No Advance Directives: No Advance Directives Information Provided: No Physical Exam ED Vital Signs: Vital Signs - 24 hr 01/21/24 18:42 01/21/24 21:35 Temperature 97.7 F 98.1 F Pulse Rate 71 69 Respiratory Rate 18 16 Blood Pressure 140/83 H 134/87 Pulse Oximetry 100 98 Oxygen Delivery Method Room Air Room Air BMI result Body Mass Index 27.5 vss Appearance: Alert.? Oriented X3.? No acute distress.? Head: Normocephalic, atraumatic, no step-offs or deformities Eyes: Pupils equal, round and reactive to light.? Neck: Normal inspection.? Neck supple.? CVS: Normal heart rate and rhythm.? Pulses normal.? Respiratory: No respiratory distress.? Breath sounds normal.? Abdomen: Soft and nontender.?Negative rosving and [place]cb[place] point Skin: Skin warm and dry.? Normal skin color.? Normal skin turgor.? Extremities: No lower extremity edema.? No calf ttp. 5/5 strength to bilateral upper and lower extremities Neuro: Oriented X 3.? No motor deficit.? No sensory deficit. CN 2-12 intact Course Course Course Narrative: This is a Rapid Medical Examination (RME) performed by Stew Fletcher PA-C in triage. Full HPI, ROS, assessment and treatment plan per primary provider in the Main ED. 38 yo male presents to the ER for evaluation of acute onset of RLQ pain that started 1 hour ago, was 10/10, stabbing now a 6/10 along with nausea. severe pain with urination as well. tender right RUQ, RLQ w/ guarding. Plan: labs and CT scan. Reevaluation(s) Reevaluation #1: CT abdomen pelvis no acute abnormality on CT scan of abdomen. Patient's CBC unremarkable. Chemistry no acute findings. Lipase normal. UA with no infection. Patient pain-free. Will discharge him home with strict return precautions. Educated patient on diagnosis and treatment plan, answered all question, patient verbalizes understanding. At this time patient will be discharged home, advised to return with new or worsening symptoms. Educated on worrisome signs and symptoms and when to return. At this time I feel comfortable discharge home. Time: 23:04 Medical Decision Making Medical Decision Making [facility] Narrative: 38 yo m presents w/ RLQ pain that started prior to his arrival in the ED however resolved on its own while in the department PE Soft and nontender.?Negative rosving and mcburney point Hx and pe concerning for virall illness versus abdominal cramp. Unlikley obstruction, acute abdomen, pancreatitis, appendicitis, diverticulitis. Unlikely UTI or metabolic derangements. Plan labs, imaging, urine Differential Diagnosis Differential Diagnoses: The differential diagnosis associated with the presentation includes Hx and pe concerning for virall illness versus abdominal cramp. Unlikley obstruction, acute abdomen, pancreatitis, appendicitis, diverticulitis. Unlikely UTI or metabolic derangements. Admission/Observation Consideration of admission/observation: Escalation of care including admission/observation considered no indication Lab Data [facility] Lab Attestation statement: I reviewed the patient's lab results. 01/21/24 19:25 01/21/24 19:25 Labs: Lab Results 01/21/24 Range/Units 19:25 WBC 8.0 (4.8-10.8) X10*3/uL RBC 4.86 (4.60-5.80) X10*6/uL Hgb 15.3 (14.0-18.0) g/dl Hct 44.3 (42.0-52.0) % MCV 91.2 (80.0-98.0) fL MCH 31.5 (27.0-33.0) pg MCHC 34.5 (31.0-36.0) g/dl RDW 12.8 (11.0-16.0) % Plt Count 205 (160-400) X10*3/uL MPV 10.2 (9.4-12.4) fL Immature Gran % (Auto) 0.3 (0.0-0.4) % Neut % (Auto) 62.7 (45-73) % Lymph % (Auto) 23.8 (20-40) % [place] % (Auto) 7.8 (2-11) % Eos % (Auto) 4.8 H (0-4) % Baso % (Auto) 0.6 (0-2) % Lymph # (Auto) 1.9 (1.2-4.9) X10*3/uL [place] # (Auto) 0.6 (0.1-1.2) X10*3/uL Eos # (Auto) 0.4 (0.0-0.4) X10*3/uL Baso # (Auto) 0.1 (0.0-0.2) X10*3/uL Abs Immat Gran (auto) 0.02 (0.00-0.03) X10*3/uL Absolute Neuts (auto) 5.0 (2.0-8.3) x10*3/uL Absolute Nucleated RBC 0.000 (0.0-0.012) X10*3/uL Nucleated RBC % (auto) 0.0 (0.0-0.2) /100WBC Sodium 141 (135-145) mmol/L Potassium 4.1 (3.3-5.1) mmol/L Chloride 106 (96-108) mmol/L Carbon Dioxide 28 (22-29) mmol/L Anion Gap 11 L (12-20) BUN 13 (9-16) mg/dL Creatinine 1.06 (0.5-1.4) mg/dL Estim Creat Clear Calc 85.5 Estimated GFR > 60 Random Glucose 115 (60-115) mg/dL Calcium 9.9 (8.4-10.2) mg/dL Magnesium 2.1 (1.6-2.6) mg/dL Total Bilirubin 0.4 (0.0-1.0) mg/dL Direct Bilirubin 0.1 (0.0-0.5) mg/dL AST 35 (5-37) U/L ALT 41 H (0-40) U/L Alkaline Phosphatase 84 (39-117) U/L Total Protein 7.7 (6.5-8.0) g/dL Albumin 4.5 (3.5-5.0) g/dL Lipase 17 (8-78) U/L Urine Color Yellow Urine Appearance Clear Urine pH 6.0 (5.0-9.0) Ur Specific [place] 1.020 (1.005-1.025) Urine Protein Negative (Neg-Trace) mg/dL Urine Glucose (UA) Negative (Negative) mg/dL Urine Ketones Negative (Negative) mg/dL Urine Blood Large (3+) H (Negative) Urine Nitrite Negative (Negative) Ur Leukocyte Esterase Negative (Negative) Urine RBC >20 H (0-2) /HPF Urine WBC 0-5 (0-5) /HPF Ur Squamous Epith Cells 0-2 (0-2) /HPF Urine Bacteria None Seen (None Seen) Hyaline Casts 0-2 (0-2) /LPF Independent Interpretation I performed an independent interpretation of an: CT Scan (CT/CT abdomen pelvis wo IV con IMPRESSION: No acute abnormality CT scan abdomen pelvis. Fleischner guidelines were followed.) Radiology Impression Discussion of test interpretation with radiology: I have reviewed the radiologist's reading. External Record Review External record reviewed: Inpatient record, Office record, Outpatient record, Prior outpatient labs, Prior outpatient radiology, Primary care record and Outside ED record Chronic Conditions denies Critical Care Time Critical Care Time Critical Care Time: No Discharge Plan Discharge Clinical Impression: Abdominal pain Patient Disposition: Home, Self-Care Instructions: Abdominal Pain (ED) Additional Instructions: Take your medications as prescribed. If you were prescribed antibiotics today, it is important that you take your medication to their entirety, do not skip any doses, do not finish them early. Follow-up with your primary care provider this week. Return to the emergency department with new or worsening symptoms. Such as fevers, chills, chest pain, shortness of breath, nausea, vomiting, dizziness, headache, vision changes, lethargy In case of emergency call 911 Prescriptions: No Action cyclobenzaprine 10 mg tablet 10 mg PO TID PRN (Reason: muscle pain or spasm) Qty: 20 0RF morphine 15 mg tablet 15 mg PO Q4-6H PRN (Reason: pain) Qty: 10 0RF Rx Instructions: The patient may ask for partial fill acetaminophen [Tylenol Extra Strength] 500 mg tablet 500 mg PO Q6H PRN (Reason: fever or pain) Qty: 14 0RF lidocaine [Lidoderm] 5 % adhesive patch,medicated 1 patch topical DAILY MDD remove after 12 hours PRN (Reason: pain) Qty: 30 0RF Rx Instructions: leave on most painful area for up to 12 hrs naproxen 500 mg tablet 500 mg PO BID PRN (Reason: pain) 10 Days Qty: 20 0RF cyclobenzaprine 5 mg tablet 5 mg PO Q8H PRN (Reason: pain (scale score 7-10)) 5 Days Qty: 14 0RF cephalexin 500 mg tablet 500 mg PO Q6H 7 Days Qty: 28 0RF amoxicillin-pot clavulanate 875-125 mg tablet 1 tab PO BID Qty: 14 0RF chlorhexidine gluconate 0.12 % mouthwash 15 ml buccal BID Qty: 118 0RF Referrals: [facility] [Provider Group] - 1 week Gary Kaur [Primary Care Provider] - 2 days Print Language: Nigerien
--- NOTE | 2024-01-21 19:26 | MHC.EDTECH ---
Patient brought into triage area,labs,and a urine obtained and sent to lab,patient brought back to .
[2024-01-21 19:33] LABS: Basophils Absolute Auto 0.1 X10*3/uL (0.0-0.2); Basophils Percent Auto 0.6 % (0-2); Eosinophils Absolute Auto 0.4 X10*3/uL (0.0-0.4); Eosinophils Percent Auto 4.8 % (0-4); Hematocrit 44.3 % (42.0-52.0); Hemoglobin 15.3 g/dl (14.0-18.0); Imm Gran Abs Auto 0.02 X10*3/uL (0.00-0.03); Imm Gran Pct Auto 0.3 % (0.0-0.4); Lymphocytes Absolute Auto 1.9 X10*3/uL (1.2-4.9); Lymphocytes Percent Auto 23.8 % (20-40); MANUAL DIFF FLAG NO; Mean Corpuscular HGB Conc 34.5 g/dl (31.0-36.0); Mean Corpuscular Hemoglobin 31.5 pg (27.0-33.0); Mean Corpuscular Volume 91.2 fL (80.0-98.0); Mean Platelet Volume 10.2 fL (9.4-12.4); Monocytes Absolute Auto 0.6 X10*3/uL (0.1-1.2); Monocytes Percent Auto 7.8 % (2-11); Neutrophils Percent Auto 62.7 % (45-73); Platelet Count 205 X10*3/uL (160-400); Red Blood Count 4.86 X10*6/uL (4.60-5.80); Red Cell Distribution Width 12.8 % (11.0-16.0)
[2024-01-21 19:35] LABS: Appearance Urine Clear; Color Urine Yellow; Glucose Urine UA Negative (Negative); Leukocyte Esterase Urine Negative (Negative); Nitrite Urine Negative (Negative); UMIC TRIGGER UACC YES; Urine Blood Large (3+) (Negative); Urine Ketones Negative (Negative); Urine Protein Negative (Neg-Trace)
[2024-01-21 19:39] LABS: Bacteria Urine None Seen (None Seen); Hyaline Casts Urine 0-2 /LPF (0-2); RBC Urine >20 /HPF (0-2); Squamous Epithelial Cell Urine 0-2 /HPF (0-2); WBC Urine 0-5 /HPF (0-5)
[2024-01-21 19:53] LABS: Alanine Aminotransferase 41 U/L (0-40); Albumin Level 4.5 g/dL (3.5-5.0); Alkaline Phosphatase 84 U/L (39-117); Anion Gap 11 (12-20); Aspartate Amino Transferase 35 U/L (5-37); Bilirubin Direct 0.1 mg/dL (0.0-0.5); Bilirubin Total 0.4 mg/dL (0.0-1.0); Blood Urea Nitrogen 13 mg/dL (9-16); Calcium 9.9 mg/dL (8.4-10.2); Carbon Dioxide 28 mmol/L (22-29); Chloride 106 mmol/L (96-108); Creatinine Clr Calc Pharmacy 85.5; Estimated Glomerular Filt Rate > 60; Glucose Random 115 mg/dL (60-115); Lipase 17 U/L (8-78); Magnesium 2.1 mg/dL (1.6-2.6); Potassium 4.1 mmol/L (3.3-5.1); Sodium 141 mmol/L (135-145); Total Protein 7.7 g/dL (6.5-8.0)
[2024-01-21 21:35] VITALS: BP 134/87; PULSE 69; RESP 16; TEMP 36.7; O2SAT 98
[2024-01-21 23:15] VITALS: BP 121/83; PULSE 65; RESP 16; TEMP 36.4; O2SAT 97
== END 2024-01-21 23:14 | disposition home or self-care (01) ==
PROVIDERS: Physician Assistant; Emergency Provider Emergency Medicine
DX: R10.31 Right lower quadrant pain (principal); Z79.899 Other long term (current) drug therapy
CPT/HCPCS: 36415; 74176; 80048; 80076; 81001; 83690; 83735; 85025; 99284

== ENCOUNTER 2024-04-25 20:27 | Emergency (ER) | payer MEDICAID, SELFPAY ==
[2024-04-25 20:35] VITALS: BP 127/81; PULSE 81; RESP 18; TEMP 36.7; O2SAT 98; BMI 26.6
--- NOTE | 2024-04-25 20:35 | ED.BACK ---
HPI - Back Pain/Injury General Chief Complaint: Back Pain/Injury Stated Complaint: sciatic nerve Related Data Previous Rx's ?Medication ?Instructions ?Recorded cyclobenzaprine 10 mg tablet 10 mg PO TID PRN muscle pain or 12/05/20 spasm #20 tabs morphine 15 mg immediate release 15 mg PO Q4-6H PRN pain #10 tabs 12/05/20 tablet acetaminophen 500 mg tablet 500 mg PO Q6H PRN fever or pain 07/29/22 (Tylenol Extra Strength) #14 tabs cyclobenzaprine 5 mg tablet 5 mg PO Q8H PRN pain (scale score 07/29/22 7-10) 5 days #14 tabs lidocaine 5 % topical patch 1 patch topical DAILY PRN pain #30 07/29/22 (Lidoderm) ea naproxen 500 mg tablet 500 mg PO BID PRN pain 10 days #20 07/29/22 tabs cephalexin 500 mg tablet 500 mg PO Q6H 7 days #28 tabs 03/15/23 amoxicillin 875 mg-potassium 1 tab PO BID #14 tabs 08/18/23 clavulanate 125 mg tablet chlorhexidine gluconate 0.12 % 15 ml buccal BID #118 mL 08/18/23 mouthwash Allergies Allergy/AdvReac Type Severity Reaction Status Date / Time No Known Allergies Allergy Verified 04/25/24 20:37 PMFSH Past Medical History Medical History Anxiety Social History Social History Advance Directives: No Advance Directives Information Provided: No Do you have a plan to hurt others: No Plan Physical Exam Vital Signs: Vital Signs: Last Vital Signs Temp 98.1 F 04/25/24 20:35 Pulse 81 04/25/24 20:35 Resp 18 04/25/24 20:35 BP 127/81 04/25/24 20:35 Pulse Ox 98 04/25/24 20:35 O2 Del Method Room Air 04/25/24 20:35 BMI result Body Mass Index 26.6 Course Course Course Narrative: This is an RME: Additional HPI, ROS, PE not included below will be deferred to primary provider. RME assessment and note performed by: Irma Powell PA-C This is a [id number]-male who presents to the ER with complaints of right lower back pain that radiates down into his right leg since today. No urinary symptoms. Pain radiates down back of his leg. No red flag back symptoms. Plan: X-ray Reevaluation(s) Reevaluation #1: Patient left without completing treatment. Discharge Plan Discharge Clinical Impression: Sciatica Patient Disposition: Left W/O Completing Treatment Prescriptions: No Action cyclobenzaprine 10 mg tablet 10 mg PO TID PRN (Reason: muscle pain or spasm) Qty: 20 0RF morphine 15 mg tablet 15 mg PO Q4-6H PRN (Reason: pain) Qty: 10 0RF Rx Instructions: The patient may ask for partial fill acetaminophen [Tylenol Extra Strength] 500 mg tablet 500 mg PO Q6H PRN (Reason: fever or pain) Qty: 14 0RF lidocaine [Lidoderm] 5 % adhesive patch,medicated 1 patch topical DAILY MDD remove after 12 hours PRN (Reason: pain) Qty: 30 0RF Rx Instructions: leave on most painful area for up to 12 hrs naproxen 500 mg tablet 500 mg PO BID PRN (Reason: pain) 10 Days Qty: 20 0RF cyclobenzaprine 5 mg tablet 5 mg PO Q8H PRN (Reason: pain (scale score 7-10)) 5 Days Qty: 14 0RF cephalexin 500 mg tablet 500 mg PO Q6H 7 Days Qty: 28 0RF amoxicillin-pot clavulanate 875-125 mg tablet 1 tab PO BID Qty: 14 0RF chlorhexidine gluconate 0.12 % mouthwash 15 ml buccal BID Qty: 118 0RF Discharge Date/Time: 04/25/24 21:17
== END 2024-04-25 21:17 | disposition left against medical advice (07) ==
PROVIDERS: Emergency Provider Emergency Medicine; PCP Nurse Practitioner Family
DX: M54.41 Lumbago with sciatica, right side (principal)
CPT/HCPCS: 99281